=== PATIENT | female | born 1980 | race Caucasian/White ===

== ENCOUNTER 2024-02-06 16:27 | Emergency (ER) | payer OTHER ==
[~2024-02-06] VITALS: Ht 162.6 cm; Wt 81.6 kg
[2024-02-06 16:27] VITALS: BP_SYST 121; PULSE 65; RESP 19; TEMP 97; O2SAT 97
== END 2024-02-06 16:48 ==
LOC: SED 16:27
DX: Z02.83 Encounter for blood-alcohol and blood-drug test (principal); Z53.21 Procedure and treatment not carried out due to patient leaving prior to being seen by health care provider
CPT/HCPCS: 36415

== ENCOUNTER 2024-02-07 03:10 | Emergency (ER) | payer OTHER ==
[~2024-02-07] VITALS: Ht 162.6 cm; Wt 81.6 kg
[2024-02-07 03:10] VITALS: BP_SYST 127; PULSE 61; RESP 18; TEMP 98.1; O2SAT 99
== END 2024-02-07 03:25 ==
LOC: SED 03:10
DX: S00.12XA Contusion of left eyelid and periocular area, initial encounter (principal); V89.2XXA Person injured in unspecified motor-vehicle accident, traffic, initial encounter; Y93.89 Activity, other specified; Y92.89 Other specified places as the place of occurrence of the external cause; Y99.8 Other external cause status
CPT/HCPCS: 99283